=== PATIENT | female | born 1955 ===

== ENCOUNTER 2025-04-06 09:02 | Outpatient (AMB) | payer MEDICARE, SELFPAY | END 2025-04-06 09:16 | disposition home or self-care (01) | LOC: HO.HMGAL 09:02 | PROVIDERS: PCP Internal Medicine; Visit Provider Registered Nurse Emergency | DX: J30.89 Other allergic rhinitis (principal) | CPT/HCPCS: 95117; 95165 ==

== ENCOUNTER 2025-04-13 08:49 | Outpatient (AMB) | payer MEDICARE, SELFPAY | END 2025-04-13 08:51 | disposition home or self-care (01) | LOC: HO.HMGAL 08:49 | PROVIDERS: PCP Internal Medicine; Visit Provider Registered Nurse Emergency | DX: J30.89 Other allergic rhinitis (principal) | CPT/HCPCS: 95117; 95165 ==

== ENCOUNTER 2025-04-20 08:47 | Outpatient (AMB) | payer MEDICARE, SELFPAY | END 2025-04-20 08:48 | disposition home or self-care (01) | LOC: HO.HMGAL 08:47 | PROVIDERS: PCP Internal Medicine; Visit Provider Registered Nurse Emergency | DX: J30.89 Other allergic rhinitis (principal) | CPT/HCPCS: 95117; 95165 ==

== ENCOUNTER 2025-05-09 09:54 | Outpatient (AMB) | payer MEDICARE, SELFPAY | END 2025-05-09 10:48 | disposition home or self-care (01) | LOC: HO.HMGAL 09:54 | PROVIDERS: PCP Internal Medicine; Visit Provider Registered Nurse Emergency | DX: J30.89 Other allergic rhinitis (principal) | CPT/HCPCS: 95117; 95165 ==

== ENCOUNTER 2025-05-18 09:14 | Outpatient (AMB) | payer MEDICARE, SELFPAY | END 2025-05-18 09:15 | disposition home or self-care (01) | LOC: HO.HMGAL 09:14 | PROVIDERS: PCP Internal Medicine; Visit Provider Registered Nurse Emergency | DX: J30.89 Other allergic rhinitis (principal) | CPT/HCPCS: 95117; 95165 ==

== ENCOUNTER 2025-06-08 09:37 | Outpatient (AMB) | payer MEDICARE, SELFPAY | END 2025-06-08 09:38 | disposition home or self-care (01) | LOC: HO.HMGAL 09:37 | PROVIDERS: PCP Internal Medicine; Visit Provider Registered Nurse Emergency | DX: J30.89 Other allergic rhinitis (principal) | CPT/HCPCS: 95117; 95165 ==

== ENCOUNTER 2025-06-15 09:38 | Outpatient (AMB) | payer MEDICARE, SELFPAY | END 2025-06-15 09:41 | disposition home or self-care (01) | LOC: HO.HMGAL 09:38 | PROVIDERS: PCP Internal Medicine; Visit Provider Registered Nurse Emergency | DX: J30.89 Other allergic rhinitis (principal) | CPT/HCPCS: 95117; 95165 ==

== ENCOUNTER 2025-06-29 09:54 | Outpatient (AMB) | payer MEDICARE, SELFPAY | END 2025-06-29 09:55 | disposition home or self-care (01) | LOC: HO.HMGAL 09:54 | PROVIDERS: PCP Internal Medicine; Visit Provider Registered Nurse Emergency | DX: J30.89 Other allergic rhinitis (principal) | CPT/HCPCS: 95117; 95165 ==

== ENCOUNTER 2025-07-20 09:35 | Outpatient (AMB) | payer MEDICARE, SELFPAY | END 2025-07-20 09:36 | disposition home or self-care (01) | LOC: HO.HMGAL 09:35 | PROVIDERS: PCP Internal Medicine; Visit Provider Registered Nurse Emergency | DX: J30.89 Other allergic rhinitis (principal) | CPT/HCPCS: 95117; 95165 ==